=== PATIENT | female | born 1980 | race Caucasian/White ===

== ENCOUNTER 2017-12-30 16:02 | Emergency (ER) | payer SELFPAY ==
[~2017-12-30] VITALS: Ht 170.2 cm; Wt 122.7 kg
[~2017-12-30 16:02] MED LIST: NO HOME MEDICATIONS; TUSS PO; VENTOLIN0.09 MG IH; ZITHROMAX Z PA250 MG PO
[2017-12-30 16:05] VITALS: TEMP 98.8
[2017-12-30] MEDS ORDERED: LOPRESSOR 225 MG/TAB PO (16:22)
[2017-12-30 16:35] LABS: COLLECTION METHOD CLEAN CATCH
[2017-12-30 16:39] LABS: BASO % 0.3 % (0.0-2.0); EOS % 0.3 % (0-4.0); GRAN % 69.9 % (42.2-75.2); HEMATOCRIT 38.9 % (37.0-47.0); HEMOGLOBIN 12.8 g/dl (12.5-16.0); LYMPH # 1.9 (1.2-3.4); MEAN CELL VOLUME 80 fl (80.0-100.0); MEAN CORPUSCULAR HEMOGLOBIN 26 pg (27.0-31.0); MEAN CORPUSCULAR HGB CONC 33 g/dl (33.0-37.0); MEAN PLATELET VOLUME 9.8 fl (7.4-10.4); MONO # 0.6 (0.1-0.6); MONO % 6.8 % (1.7-9.3); PLATELET COUNT 328 K/mm3 (130-400); RED BLOOD COUNT 4.86 M/mm3 (4.10-5.30); REDCELL DISTRIBUTION WIDTH-CV 13.8 % (11.5-14.5)
[2017-12-30 16:48] LABS: MUCOUS Present /lpf; PH 5 (5-8); URINE APPEARANCE Hazy; URINE BACTERIA Rare /hpf; URINE BILIRUBIN Negative (NEGATIVE); URINE BLOOD Negative (NEGATIVE); URINE COLOR Yellow; URINE GLUCOSE Negative (NEGATIVE); URINE KETONE Negative (NEGATIVE); URINE LEUKOCYTE ESTERASE 2+ (NEGATIVE); URINE NITRATE Negative (NEGATIVE); URINE PROTEIN(semi-quant) 1+ (NEGATIVE); URINE UROBILINOGEN Negative (NEGATIVE)
[2017-12-30 16:49] LABS: ALBUMIN 4.3 gm/dL (3.5-5.0); BILIRUBIN,TOTAL 0.4 mg/dL (0.0-1.0); CALCIUM 9.4 mg/dL (8.4-10.2); CREATININE, serum 0.86 mg/dL (0.52-1.25); POTASSIUM 3.5 mmol/L (3.4-5.0); TOTAL PROTEIN 8.2 gm/dL (6.4-8.2)
[2017-12-30] MEDS ORDERED: OMNICEF 300MG300 MG PO (18:04)
[2017-12-30] MEDS ORDERED: NORCO 325 MG-51 TAB PO (18:04)
[2017-12-30 18:33] VITALS: BP 172/103; PULSE 66
== END 2017-12-30 18:30 | disposition home or self-care (01) ==
LOC: COL.ER 16:02
PROVIDERS: Nurse Practitioner Primary Care
DX: N39.0 Urinary tract infection, site not specified (principal); I10 Essential (primary) hypertension
CPT/HCPCS: J1170; J1885; J7030

== ENCOUNTER 2020-03-26 17:56 | Emergency (ER) | payer SELFPAY ==
[~2020-03-26] VITALS: Ht 170.2 cm; Wt 127.3 kg
[~2020-03-26 17:56] MED LIST changes: +LOPRESSOR 225 MG/TAB PO; +NORCO 325 MG-51 TAB PO; +OMNICEF 300MG300 MG PO
[2020-03-26 18:03] VITALS: TEMP 97.3
[2020-03-26] MEDS ORDERED: FLEXERIL 1010 MG/TAB PO (19:12)
[2020-03-26 19:30] VITALS: BP 140/69; PULSE 77
== END 2020-03-26 19:30 | disposition home or self-care (01) ==
LOC: COL.ER 17:56
DX: G56.02 Carpal tunnel syndrome, left upper limb (principal); M54.2 Cervicalgia; I10 Essential (primary) hypertension

== ENCOUNTER 2021-10-14 12:48 | Emergency (ER) | payer SELFPAY ==
[~2021-10-14] VITALS: Ht 170.2 cm; Wt 125.0 kg
[~2021-10-14 12:48] MED LIST changes: +FLEXERIL 1010 MG/TAB PO
[2021-10-14 12:55] VITALS: TEMP 98.3
[2021-10-14 14:09] LABS: BASO # 0.1 K/mm3 (0.0-0.2); BASO % 0.5 % (0.0-2.0); EOS # 0.3 K/mm3 (0.0-0.7); EOS % 3.5 % (0.0-4.0); GRAN # 7.2 K/mm3 (1.4-6.5); GRAN % 73.4 % (42.2-75.2); HEMOGLOBIN 12.9 g/dl (12.5-16.0); LYMPH # 1.5 K/mm3 (1.2-3.4); LYMPH % 15.6 % (20.0-51.0); MEAN CELL VOLUME 80 fl (80.0-100.0); MEAN CORPUSCULAR HEMOGLOBIN 26 pg (27-31); MEAN CORPUSCULAR HGB CONC 32 g/dl (33.0-37.0); MEAN PLATELET VOLUME 10.3 fl (7.4-10.4); MONO # 0.7 K/mm3 (0.1-0.6); MONO % 6.8 % (1.7-9.3); PLATELET COUNT 323 K/mm3 (130-400); RED BLOOD COUNT 5.01 M/mm3 (4.10-5.30)
[2021-10-14 14:37] LABS: ALBUMIN 3.7 gm/dL (3.5-5.0); BILIRUBIN,TOTAL 0.4 mg/dL (0.2-1.2); CALCIUM 9.5 mg/dL (8.4-10.2); CREATININE, serum 0.85 mg/dL (0.57-1.11); POTASSIUM 3.7 mmol/L (3.5-4.5); TOTAL PROTEIN 8.4 gm/dL (6.2-8.1)
[2021-10-14 14:43] LABS: TROPONIN-I 0.015 ng/mL (0.00-0.033)
[2021-10-14] MEDS ORDERED: ZITHROMAX Z PA250 MG PO (15:10)
[2021-10-14 15:23] VITALS: BP 134/86; PULSE 91
== END 2021-10-14 15:22 | disposition home or self-care (01) ==
LOC: COL.ER 12:48
PROVIDERS: Personal Emergency Response Attendant
DX: J40 Bronchitis, not specified as acute or chronic (principal); I10 Essential (primary) hypertension
CPT/HCPCS: J0360